=== PATIENT | female | born 1960 | race Two or more races ===

== ENCOUNTER 2019-06-17 16:43 | Emergency (ER) | payer OTHER ==
[~2019-06-17] VITALS: Ht 147.3 cm; Wt 68.9 kg
[2019-06-17 17:01] VITALS: Ht 147.3 cm; Wt 68.9 kg
[2019-06-17 17:36] LABS: CARBON DIOXIDE 29.6 mmol/L (21-32); CHLORIDE SERUM 105 mmol/L (98-107); CREATININE SERUM 0.9 mg/dL (0.6-1.0); GFR1 > 60 mL/min; GLUCOSE SERUM 114 mg/dL (74-106); POTASSIUM SERUM 4.6 mmol/L (3.5-5.1); SODIUM SERUM 139 mmol/L (136-145)
[2019-06-17 17:38] LABS: BASOPHIL % 0.5 % (0-2); PLATELET COUNT 344 x10^3mcL (130-400); RED CELL DISTRIBUTION WIDTH 13.7 % (11.5-14.5)
[2019-06-17 17:41] LABS: ALBUMIN 3.7 g/dL (3.4-5.0); ALKALINE PHOSPHATASE 78 U/L (46-116); ALT/SGPT 22 U/L (14-59); AST/SGOT 15 U/L (15-37); LIPASE 158 IU/L (73-393); TOTAL PROTEIN, SERUM 8.3 g/dL (6.4-8.2)
[2019-06-17 20:22] VITALS: BP 135/75
== END 2019-06-17 20:22 | disposition home or self-care (01) ==
LOC: ED 16:43
DX: K44.9 Diaphragmatic hernia without obstruction or gangrene (principal); M19.90 Unspecified osteoarthritis, unspecified site; Z88.0 Allergy status to penicillin
CPT/HCPCS: 36415